=== PATIENT | male | born 1955 | race Caucasian/White ===

== ENCOUNTER 2021-03-29 21:12 | Emergency (ER) | payer MEDICARE, MEDICAID ==
[~2021-03-29] VITALS: Ht 172.7 cm; Wt 74.8 kg
[2021-03-29] MEDS ORDERED: MORPHINE SULFATE INJ 4 MG/ML DISP.SYRIN ONE (22:21)
[2021-03-29] MEDS ORDERED: ONDANSETRON 4 MG TAB.RAPDIS ONE (22:27)
[2021-03-29] MEDS: ONDANSETRON 4 MG TAB.RAPDIS SL ONE (22:32)
[2021-03-29] MEDS: MORPHINE SULFATE INJ 2 MG/ML DISP.SYRIN IM ONE (22:32)
[2021-03-30] MEDS ORDERED: TRAM50TA2 PO (00:31)
[2021-03-30] MEDS ORDERED: IBUP-1955 PO (00:31)
[2021-03-30 00:34] VITALS: BP 145/90
== END 2021-03-30 00:34 | disposition home or self-care (01) ==
LOC: ER 21:18
DX: M79.604 Pain in right leg (principal); I10 Essential (primary) hypertension; F17.200 Nicotine dependence, unspecified, uncomplicated; Z98.890 Other specified postprocedural states; Z60.2 Problems related to living alone
CPT/HCPCS: 73502; 73552; 73590; 93926; 93971; 96372; 99285; J2270; Q0162